=== PATIENT | male | born 1990 | race Caucasian/White ===

== ENCOUNTER 2017-09-25 01:43 | Emergency (ER) | payer OTHER ==
[2017-09-25 02:20] VITALS: BMI 21.2
[2017-09-25] MEDS ORDERED: ONDANSETRON 4 MG/2 ML VIAL IVPB ONE (02:40)
[2017-09-25] MEDS ORDERED: LACTATED RINGERS SOLUTION 1,000 ML/1,000 ML INFUS.BAG IV SCH (02:45)
[2017-09-25] MEDS ORDERED: ONDANSETRON 4 MG/2 ML VIAL ONE (02:51)
--- NOTE | 2017-09-25 03:06 | PDOC ---
History of Present Illness - History of Present Illness Initial Comments: 09/25/17 04:09 Patient is a 26 year old male with a significant past medical history of who was brought by EMS to the ED for alcohol intoxication. Patient reports being with family when he began to drink alcohol and had too many beers. He currently does not have any complaints while in the ED. Denies chest pain, Sob. Denies nausea, vomiting. Denies contact with sick individuals, out of state traveling. Denies any other symptoms. Allergies: None Social history: Current alcohol use. No smoking. No alcohol. Surgical history: None PMD: None <Trent Pelayo - Last Filed: 09/25/17 04:09> - General History Source: Patient, Family Exam Limitations: Intoxication <Shawn Madrid - Last Filed: 09/25/17 07:01> - General Chief Complaint: Alcohol intoxication Stated Complaint: INTOX Time Seen by Provider: 09/25/17 02:40 Past History <Trent Pelayo - Last Filed: 09/25/17 04:09> - Suicide/Smoking/Psychosocial Hx Smoking History: Unknown if ever smoked Have you smoked in the past 12 months: No Information on smoking cessation initiated: No Hx Alcohol Use: Yes Drug/Substance Use Hx: No <Shawn Madrid - Last Filed: 09/25/17 07:01> - Past Medical History Allergies/Adverse Reactions: Allergies Allergy/AdvReac Type Severity Reaction Status Date / Time No Known Allergies Allergy Verified 09/25/17 02:15 Home Medications: Ambulatory Orders NK [No Known Home Medication] 09/25/17 Review of Systems - Review of Systems Able to Perform ROS?: Yes Comments:: 09/25/17 04:09 GENERAL/CONSTITUTIONAL: +Intoxicated. No fever or chills. No weakness. HEAD, EYES, EARS, NOSE AND THROAT: No change in vision. No ear pain or discharge. No sore throat. CARDIOVASCULAR: No chest pain or shortness of breath. RESPIRATORY: No cough, wheezing, or hemoptysis. GASTROINTESTINAL: No nausea, vomiting, diarrhea or constipation. GENITOURINARY: No dysuria, frequency, or change in urination. MUSCULOSKELETAL: No joint or muscle swelling or pain. No neck or back pain. SKIN: No rash NEUROLOGIC: No headache, vertigo, loss of consciousness, or change in strength/ sensation. ENDOCRINE: No increased thirst. No abnormal weight change. HEMATOLOGIC/LYMPHATIC: No anemia, easy bleeding, or history of blood clots. ALLERGIC/IMMUNOLOGIC: No hives or skin allergy. <Trent Pelayo - Last Filed: 09/25/17 04:09> *Physical Exam - Vital Signs Last Vital Signs Temp Pulse Resp BP Pulse Ox 97.9 F 110 H 14 120/87 96 09/25/17 02:15 09/25/17 02:15 09/25/17 02:15 09/25/17 02:15 09/25/17 02:15 - Physical Exam Comments: 09/25/17 04:09 GENERAL: +Intoxication. +Alcohol on breath. Awake, alert, and fully oriented, in no acute distress HEAD: No signs of trauma EYES: PERRLA, EOMI, sclera anicteric, conjunctiva clear ENT: Auricles normal inspection, hearing grossly normal, nares patent, NECK: Normal ROM, supple, no lymphadenopathy, JVD, or masses LUNGS: Breath sounds equal, clear to auscultation bilaterally. No wheezes, and no crackles HEART: Regular rate and rhythm, normal S1 and S2, no murmurs, rubs or gallops ABDOMEN: Soft, nontender, normoactive bowel sounds. No guarding, no rebound. No masses EXTREMITIES: Normal range of motion, no edema. No clubbing or cyanosis. No cords, erythema, or tenderness NEUROLOGICAL: Cranial nerves II through XII grossly intact. Normal speech, SKIN: Warm, Dry, normal turgor, no rashes or lesions noted. <Trent Pelayo - Last Filed: 09/25/17 04:09> - Vital Signs Last Vital Signs Temp Pulse Resp BP Pulse Ox 97.9 F 110 H 14 120/87 96 09/25/17 02:15 09/25/17 02:15 09/25/17 02:15 09/25/17 02:15 09/25/17 02:15 <Shawn Madrid - Last Filed: 09/25/17 07:01> ED Treatment Course - LABORATORY CBC & Chemistry Diagram: 09/25/17 03:06 09/25/17 03:06 - ADDITIONAL ORDERS Additional order review: Laboratory Results 09/25/17 03:06 Sodium 140 Potassium 3.9 Chloride 106 Carbon Dioxide 25 Anion Gap 9 BUN 14 Creatinine 0.8 Creat Clearance w eGFR > 60 Random Glucose 127 H Calcium 8.5 Total Bilirubin < 0.1 L AST 25 ALT 28 Alkaline Phosphatase 77 Total Protein 7.6 Albumin 4.6 Alcohol, Quantitative 302.48 H* 09/25/17 03:06 RBC 4.98 MCV 95.9 MCHC 34.7 RDW 13.1 MPV 9.9 Neutrophils % 83.2 H Lymphocytes % 12.0 Monocytes % 4.0 Eosinophils % 0.6 Basophils % 0.2 - Medications Given in the ED: ED Medications Discontinued Medications Generic Name Dose Route Start Last Admin Trade Name Freq PRN Reason Stop Dose Admin Ondansetron HCl 4 mg 09/25/17 02:40 09/25/17 03:12 Zofran Injection IVPB 09/25/17 02:41 4 mg ONCE ONE Administration <Trent Pelayo - Last Filed: 09/25/17 04:09> - LABORATORY CBC & Chemistry Diagram: 09/25/17 03:06 09/25/17 03:06 <Shawn Madrid - Last Filed: 09/25/17 07:01> Medical Decision Making - Medical Decision Making 09/25/17 03:04 A portion of this note was documented by scribe services under my direction. I have reviewed the details of the note, within reason, and agree with the documentation with the following case summary and management plan written by me. Patient treated in the ED. Nursing notes are reviewed and incorporated into the medical decision-making. Vital signs reviewed. Peripheral IV access obtained by the nurse, laboratory studies are drawn and sent, reviewed and interpreted by myself. Vital Signs Temp Pulse Resp BP Pulse Ox 97.9 F 110 H 14 120/87 96 09/25/17 02:15 09/25/17 02:15 09/25/17 02:15 09/25/17 02:15 09/25/17 02:15 26 year old male with no medical history brought in by EMS by his family for alcohol intoxication. The patient's family was with the patient the entire time. He had multiple liquor and hard drinks and the patient has had nausea. Patient's family was concerned as he was getting very intoxicated came to the ED. Denies other ingestions. Denies injuries or falls. The patient is protecting his airway and breathing comfortably. He is clearly intoxicated from alcohol. We'll give him IV fluids and Zofran and allow the alcohol to metabolize. Once patient sober, the patient to be discharged home with family. 09/25/17 07:00 CBC, BMP 09/25/17 03:06 09/25/17 03:06 CMP Sodium 140 mmol/L (136-145) 09/25/17 03:06 Potassium 3.9 mmol/L (3.5-5.1) 09/25/17 03:06 Chloride 106 mmol/L (98-107) 09/25/17 03:06 Carbon Dioxide 25 mmol/L (21-32) 09/25/17 03:06 Anion Gap 9 (8-16) 09/25/17 03:06 BUN 14 mg/dL (7-18) 09/25/17 03:06 Creatinine 0.8 mg/dL (0.7-1.3) 09/25/17 03:06 Creat Clearance w eGFR > 60 (>60) 09/25/17 03:06 Random Glucose 127 mg/dL (74-106) H 09/25/17 03:06 Calcium 8.5 mg/dL (8.5-10.1) 09/25/17 03:06 Total Bilirubin < 0.1 mg/dL (0.2-1.0) L 09/25/17 03:06 AST 25 U/L (15-37) 09/25/17 03:06 ALT 28 U/L (12-78) 09/25/17 03:06 Alkaline Phosphatase 77 U/L (45-117) 09/25/17 03:06 Total Protein 7.6 g/dl (6.4-8.2) 09/25/17 03:06 Albumin 4.6 g/dl (3.4-5.0) 09/25/17 03:06 Alcohol level ~300. Case signed out to Dr. Brown for further management and disposition. <Shawn Madrid - Last Filed: 09/25/17 07:01> *DC/Admit/Observation/Transfer - Attestations Scribe Attestion: 09/25/17 04:09 Documentation prepared by Trent Pelayo, acting as remote medical coder for Shawn Madrid MD, /DO. <Trent Pelayo - Last Filed: 09/25/17 04:09>
[2017-09-25 03:17] LABS: BASO % 0.2 % (0-2.0); EOS % 0.6 % (0-4.5); HEMATOCRIT 47.8 % (35.4-49); HEMOGLOBIN 16.6 GM/dL (11.7-16.9); MCH 33.3 pg (25.7-33.7); MCHC 34.7 g/dl (32.0-35.9); MEAN CELL VOLUME 95.9 fl (80-96); MEAN PLT VOLUME 9.9 fl (7.5-11.1); NEUT % 83.2 % (42.8-82.8); PLATELET COUNT 174 K/MM3 (134-434); RBC 4.98 M/mm3 (4.00-5.60); RDW 13.1 % (11.9-15.9); WHITE BLOOD COUNT 10.8 K/mm3 (4.0-10.0)
[2017-09-25 03:43] LABS: ALBUMIN 4.6 g/dl (3.4-5.0); ANION GAP 9 (8-16); BLOOD UREA NITROGEN 14 mg/dL (7-18); CALCIUM 8.5 mg/dL (8.5-10.1); CHLORIDE 106 mmol/L (98-107); CO2 25 mmol/L (21-32); CREATININE 0.8 mg/dL (0.7-1.3); GLUCOSE,RANDOM 127 mg/dL (74-106); POTASSIUM 3.9 mmol/L (3.5-5.1); SGOT/AST 25 U/L (15-37); SGPT/ALT 28 U/L (12-78); SODIUM 140 mmol/L (136-145)
[2017-09-25 03:47] LABS: ALK PHOS 77 U/L (45-117); TOT PROT 7.6 g/dl (6.4-8.2)
[2017-09-25 03:49] LABS: BILIRUBIN,TOTAL < 0.1 mg/dL (0.2-1.0)
[2017-09-25 07:54] VITALS: BP 120/66; PULSE 90; TEMP 98.6
--- NOTE | 2017-09-25 09:37 | PDOC ---
*Physical Exam - Vital Signs Last Vital Signs Temp Pulse Resp BP Pulse Ox 98.6 F 90 16 120/66 96 09/25/17 07:53 09/25/17 07:53 09/25/17 07:53 09/25/17 07:53 09/25/17 07:53 - Physical Exam Comments: 09/25/17 09:32 VSS ambulating steadily and feeling better heart and lungs clear ED Treatment Course - LABORATORY CBC & Chemistry Diagram: 09/25/17 03:06 09/25/17 03:06 - ADDITIONAL ORDERS Additional order review: Laboratory Results 09/25/17 03:06 Sodium 140 Potassium 3.9 Chloride 106 Carbon Dioxide 25 Anion Gap 9 BUN 14 Creatinine 0.8 Creat Clearance w eGFR > 60 Random Glucose 127 H Calcium 8.5 Total Bilirubin < 0.1 L AST 25 ALT 28 Alkaline Phosphatase 77 Total Protein 7.6 Albumin 4.6 Alcohol, Quantitative 302.48 H* 09/25/17 03:06 RBC 4.98 MCV 95.9 MCHC 34.7 RDW 13.1 MPV 9.9 Neutrophils % 83.2 H Lymphocytes % 12.0 Monocytes % 4.0 Eosinophils % 0.6 Basophils % 0.2 - Medications Given in the ED: ED Medications Discontinued Medications Generic Name Dose Route Start Last Admin Trade Name Freq PRN Reason Stop Dose Admin Ondansetron HCl 4 mg 09/25/17 02:40 09/25/17 03:12 Zofran Injection IVPB 09/25/17 02:41 4 mg ONCE ONE Administration Medical Decision Making - Medical Decision Making 09/25/17 09:32 Received signout on this 26-year-old male with acute alcohol intoxication, labs wnl except for elevated etoh plan at signout to d/c when clinically sober pt improved, ambulating steadily, stable for d/c family at bedside will accompany him home *DC/Admit/Observation/Transfer Diagnosis at time of Disposition: Alcohol intoxication Qualifiers: Complication of substance-induced condition: uncomplicated Qualified Code(s): F10.920 - Alcohol use, unspecified with intoxication, uncomplicated - Discharge Dispostion Disposition: HOME Condition at time of disposition: Improved - Referrals Referrals: Keven Rose MD [Staff Physician] - - Patient Instructions Printed Discharge Instructions: DI for Alcohol Poisoning Additional Instructions: Activity as tolerated. Stay well hydrated. Drink alcohol in moderation. You should follow up with your primary doctor as soon as possible regarding today's emergency department visit. Return to the emergency department for any new or concerning symptoms, particularly pain or weakness, vomiting or abdominal pain, fever/chills. - Post Discharge Activity
== END 2017-09-25 09:40 | disposition home or self-care (01) ==
LOC: JER 01:43
PROC: 3E033GC Introduction of Other Therapeutic Substance into Peripheral Vein, Percutaneous Approach (ICD-10-PCS; principal; 2017-09-25)
PROC: 3E033GC Introduction of Other Therapeutic Substance into Peripheral Vein, Percutaneous Approach (ICD-10-PCS; 2017-09-25)
DX: F10.120 Alcohol abuse with intoxication, uncomplicated (principal); Y90.8 Blood alcohol level of 240 mg/100 ml or more
CPT/HCPCS: 36415; 80053; 80307; 85025; 99282-25